=== PATIENT | male | born 1995 | race Caucasian/White ===

== ENCOUNTER 2017-11-15 09:24 | Emergency (ER) | payer BC ==
[~2017-11-15] VITALS: Ht 177.8 cm; Wt 81.8 kg
[~2017-11-15 09:24] MED LIST: NO HOME MEDICATIONS
[2017-11-15 09:26] VITALS: TEMP 97.8
[2017-11-15 10:33] VITALS: BP 126/73; PULSE 78
== END 2017-11-15 10:34 | disposition home or self-care (01) ==
LOC: COL.ER 09:24
DX: S52.502A Unspecified fracture of the lower end of left radius, initial encounter for closed fracture (principal); F12.90 Cannabis use, unspecified, uncomplicated; F17.210 Nicotine dependence, cigarettes, uncomplicated; V00.131A Fall from skateboard, initial encounter; Y92.830 Public park as the place of occurrence of the external cause
CPT/HCPCS: Q4050

== ENCOUNTER → 2020-06-02 | Outpatient (CLI) | payer BC | LOC: ZCOL.LAB 13:39 | DX: Z20.828 Contact with and (suspected) exposure to other viral communicable diseases (principal) ==